=== PATIENT | male | born 1995 | race Two or more races ===

== ENCOUNTER 2023-05-24 09:46 | Emergency (ER) | payer MEDICAID ==
[~2023-05-24] VITALS: Ht 165.1 cm; Wt 128.8 kg
[2023-05-24 10:46] VITALS: BP 141/91; PULSE 90; RESP 18; TEMP 98.8; O2SAT 97
[2023-05-24] MEDS ORDERED: IBUP-1456 PO (11:10)
[2023-05-24] MEDS ORDERED: CEPH500C PO (11:10)
== END 2023-05-24 11:16 | disposition home or self-care (01) ==
LOC: ER 09:46
DX: L05.91 Pilonidal cyst without abscess (principal); M53.3 Sacrococcygeal disorders, not elsewhere classified